=== PATIENT | female | born 1985 | race African-American/Black ===

== ENCOUNTER 2017-11-19 10:21 | Emergency (ER) | payer SELFPAY ==
[2017-11-19] MEDS ORDERED: ONDANSETRON 4 MG (ODT) TAB ONE (13:24)
--- NOTE | 2017-11-19 13:33 | ER ---
Nurse's Notes [facility] Name: Diaan Short Age: 32 yrs Sex: Female : 1985 Arrival Date: 11/19/2017 Time: 10:24 Bed 12 Private MD: None, None Diagnosis: Presentation: 11/19 10:33 Presenting complaint: Patient states: Reports N/V that started 1.5 hours ago. Vomited x aj 3 episodes. Patient states, "I had my nexplanon removed yesterday, I don't know if that has anything to do with it.". Transition of care: patient was not received from another setting of care. Onset of symptoms was November 19, 2017. Initial Sepsis Screen: Does the patient meet any 2 criteria? No. Patient's initial sepsis screen is negative. Does the patient have a suspected source of infection? No. Patient's initial sepsis screen is negative. Care prior to arrival: None. 10:33 Method Of Arrival: Ambulatory aj 10:33 Acuity: ESPERANZA 3 aj Triage Assessment: 10:34 General: Appears in no apparent distress. comfortable, Behavior is calm, cooperative, aj appropriate for age. Pain: Complains of pain in abdomen. Neuro: Level of Consciousness is awake, alert, obeys commands, Oriented to person, place, time, situation, Appropriate for age. Respiratory: Airway is patent Respiratory effort is even, unlabored, Respiratory pattern is regular, symmetrical. GI: Reports lower abdominal pain, upper abdominal pain, nausea, vomiting. Derm: Skin is intact, is healthy with good turgor, Skin is pink, warm \\T\\ dry. normal. 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 - Social history:: Smoking status: Patient uses tobacco products, smokes one-half pack cigarettes per day. Screenin:53 Abuse screen: Denies threats or abuse. Denies injuries from another. Nutritional iw screening: No deficits noted. Tuberculosis screening: No symptoms or risk factors identified. Fall Risk IV access (20 points). Assessment: 12:51 General: Appears in no apparent distress. Behavior is calm, cooperative. Pain: iw Complains of pain in suprapubic area and right lower quadrant. Neuro: Level of Consciousness is awake, alert, obeys commands. Cardiovascular: Patient's skin is warm and dry. Respiratory: Respiratory effort is even, unlabored, Respiratory pattern is regular. GI: Abdomen is non-distended, Reports nausea, vomiting. Derm: Skin is pink, warm \\T\\ dry. normal. Musculoskeletal: Range of motion: intact in all extremities. 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 Vital Signs: 10:34 BP 137 / 92; Pulse 98; Resp 19; Temp 98.7; Pulse Ox 99% on R/A; Weight 79.38 kg; Height aj 5 ft. 0 in. (152.40 cm); 10:34 Body Mass Index 34.18 (79.38 kg, 152.40 cm) aj ED Course: 10:24 Patient arrived in ED. mr 10:25 None, None is Private Physician. mr 10:34 Triage completed. aj 10:34 Arm band placed on left wrist. Patient placed in waiting room, Patient notified of wait aj time. 12:36 Chris Sheehan PA is PHCP. cp 12:36 Dimas Nuñez MD is Attending Physician. cp 12:51 Madison Eaton, RN is Primary Nurse. iw Administered Medications: 13:25 Drug: Zofran 4 mg Route: PO; iw 13:32 Follow up: Response: No adverse reaction iw Outcome: 13:32 Eloped from waiting room, after seeing physician Time discovered patient gone: November 19 2018 at 13:32 13:32 Patient left the ED. iw Signatures: Estela Butts, RN RN Leela Angulo mr Madison Eaton, RN RN Chris Chance PA PA cp
[2017-11-19 13:36] VITALS: BP 137/92; TEMP 98.7; O2SAT 99
--- NOTE | 2017-11-20 13:43 | EDPHYS ---
Physician Documentation [facility] Name: Diana Short Age: 32 yrs Sex: Female : 1985 Arrival Date: 11/19/2017 Time: 10:24 Bed 12 Private MD: None, None ED Physician Dimas Nuñez HPI: 11/19 12:45 This 32 yrs old Black Female presents to ER via Ambulatory with complaints of Vomiting. cp 12:45 The patient presents to the emergency department with nausea, vomiting, that is cp intermittent, 3 times today. Onset: The symptoms/episode began/occurred this morning. Possible causes: unknown. 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 - Social history:: Smoking status: Patient uses tobacco products, smokes one-half pack cigarettes per day. ROS: 12:55 Constitutional: Negative for body aches, chills, fever, poor PO intake. cp 12:55 Eyes: Negative for injury, pain, redness, and discharge. cp 12:55 ENT: Negative for drainage from ear(s), ear pain, sore throat, difficulty swallowing, difficulty handling secretions. 12:55 Respiratory: Negative for cough, shortness of breath, wheezing. 12:55 Abdomen/GI: Positive for abdominal pain, nausea and vomiting, Negative for diarrhea, constipation, black/tarry stool, rectal bleeding. 12:55 Back: Negative for pain at rest, pain with movement. 12:55 : Negative for urinary symptoms, vaginal bleeding, vaginal discharge. 12:55 Skin: Negative for cellulitis, rash. 12:55 Neuro: Negative for headache, weakness. 12:55 All other systems are negative. Exam: 13:02 Constitutional: The patient appears in no acute distress, alert, awake, non-toxic, well cp developed, well nourished. 13:02 Head/Face: Normocephalic, atraumatic. cp 13:02 Eyes: Periorbital structures: appear normal, Conjunctiva: normal, no exudate, no injection, Sclera: no appreciated abnormality, Lids and lashes: appear normal, bilaterally. 13:02 ENT: External ear(s): are unremarkable, Ear canal(s): are normal, clear, TM's: bulging, is not appreciated, bilaterally, dullness, bilaterally, erythema, is not appreciated, bilaterally, Nose: is normal, Mouth: Lips: moist, Oral mucosa: pink and intact, moist, Posterior pharynx: is normal, airway is patent, no erythema, no exudate. 13:02 Neck: ROM/movement: is normal, is supple, without pain, no range of motions limitations, no nuchal rigidity. 13:02 Chest/axilla: Inspection: normal, Palpation: is normal, no crepitus, no tenderness. 13:02 Cardiovascular: Rate: normal, Rhythm: regular. 13:02 Respiratory: the patient does not display signs of respiratory distress, Respirations: normal, no use of accessory muscles, no retractions, no splinting, no tachypnea, Breath sounds: are clear throughout, no decreased breath sounds, no stridor, no wheezing. 13:02 Abdomen/GI: Inspection: abdomen appears normal, Bowel sounds: active, all quadrants, Palpation: soft, in all quadrants, nontender, in all quadrants, rebound tenderness, is not appreciated, voluntary guarding, is not appreciated, involuntary guarding, is not appreciated. 13:02 Back: pain, is absent, ROM is normal. 13:02 Skin: cellulitis, is not appreciated, no rash present. Vital Signs: 10:34 BP 137 / 92; Pulse 98; Resp 19; Temp 98.7; Pulse Ox 99% on R/A; Weight 79.38 kg; Height aj 5 ft. 0 in. (152.40 cm); 10:34 Body Mass Index 34.18 (79.38 kg, 152.40 cm) aj MDM: 12:37 Patient medically screened. cp 13:30 Data reviewed: vital signs, nurses notes. cp 13:30 Differential diagnosis: gastritis, cholecystitis, appendicitis, viral gastroenteritis, cp gastroenteritis. Administered Medications: 13:25 Drug: Zofran 4 mg Route: PO; iw 13:32 Follow up: Response: No adverse reaction iw Disposition: 11/19/17 13:32 Patient left the facility after being seen by provider. - Patient left due to other. Addendum: 11/21/2017 06:39 Co-signature as Attending Physician, Dimas Nuñez MD I agree with the assessment and w a plan of care. Signatures: Estela Butts RN RN aj Williams, Irene, RN RN iw Page, Corey, PA PA cp Appiah, William, MD MD wa Corrections: (The following items were deleted from the chart) 11/19 13:32 13:32 11/19/2017 13:32 Patient left the facility after being seen by provider. Reason iw stated they are leaving due to other. iw
== END 2017-11-19 13:32 | disposition left against medical advice (07) ==
LOC: ER 10:21
DX: R11.2 Nausea with vomiting, unspecified (principal); J45.909 Unspecified asthma, uncomplicated
CPT/HCPCS: 99282

== ENCOUNTER 2024-04-21 06:03 | Emergency (ER) | payer OTHER ==
[2024-04-21] MEDS ORDERED: IPRATROPIUM BROM 0.5MG/2.5ML ONE (06:51)
[2024-04-21] MEDS ORDERED: ALBUTEROL 2.5 MG/3 ML NEB SOL ONE (06:51)
[2024-04-21 07:00] LABS: Absolute Eosinophils 0.2 K/uL (0-0.5); Absolute Lymphocytes (CBC) 2.3 K/uL (0.7-4.9); Absolute Monocytes 0.4 K/uL (0.1-1.3); Absolute Neutrophil 3.5 K/uL (1.8-8.0); Basophils % 0.3 % (0-1.3); Eosinophils % 2.5 % (0-4.4); Hematocrit 39.5 % (36.0-45.0); Lymphocytes % 36.5 % (15.3-44.8); MCHC 32.8 g/dL (32.0-36.0); MCV 88.2 fL (80-100); MPV 8.4 fL (7.6-11.3); Monocytes % 6.6 % (3.3-12.3); Neutrophils % 54.1 % (41.7-73.7); Platelets 349 thou/uL (152-406); RBC Red Blood Cell Count 4.48 M/uL (3.86-4.86); Red Cell Distribution Width 12.7 % (12.1-15.2)
[2024-04-21 07:15] LABS: ALT/SGPT 22 U/L (13-56); Albumin 3.5 g/dL (3.4-5.0); Alkaline Phosphatase 60 U/L (45-117); Anion Gap 6.7 mEq/L (5.0-15.0); BUN Blood Urea Nitrogen 17 mg/dL (7-18); Bicarbonate 28 mEq/L (21-32); Bilirubin Total 0.4 mg/dL (0.2-1.0); Globulin 3.6 g/dL (2.3-3.5); Glomerular Filtration Rate 96 ml/min (=/>90); Glucose Level 98 mg/dL (74-106); Potassium 3.7 mEq/L (3.5-5.1); Protein, Total 7.1 g/dL (6.4-8.2); Sodium Level 137 mEq/L (136-145)
[2024-04-21 07:19] LABS: SARS-CoV-2 Antigen CONTROL BLUE LINE VIS/BG OK; SARS-CoV-2 Antigen Rapid Res Negative (Negative)
[2024-04-21 07:19] LABS: AST/SGOT < 10 U/L (15-37); Bilirubin Direct < 0.2 mg/dL (0-0.2); Bilirubin Indirect, Calculated 0.2 mg/dL (0.2-0.8)
--- NOTE | 2024-04-21 08:03 | RAD REPORT ---
Procedure: Chest Single View History: Cough Comparison: 2012 The lungs appear clear of acute infiltrate. No significant pleural effusion noted. The heart is normal size. IMPRESSION: No acute abnormality is displayed.
--- NOTE | 2024-04-21 08:40 | ER ---
Nurse's Notes [facility] Name: Diana Short Age: 38 yrs Sex: Female : 1985 Arrival Date: 04/21/2024 Time: 06:03 Bed 5 Private MD: Diagnosis: Acute upper respiratory infection, unspecified;Unspecified asthma with (acute) exacerbation Presentation: 04/21 06:23 Chief complaint: Patient states: diagnosed with bronchitis 3 weeks ago. been taking lg3 Bromfed and finished ZPak and symptoms are worsening. im hoarse, my asthma is worse, my chest is tight and my mucous is thick and yellow now. Coronavirus screen: At this time, unable to obtain information related to travel outside the [place] Client presents with at least one sign or symptom that may indicate coronavirus-19. Standard/surgical mask placed on the client. Ebola Screen: No symptoms or risks identified at this time. Resp Distress? No respiratory distress is noted at this time. Risk Assessment: Do you want to hurt yourself or someone else? Patient reports no desire to harm self or others. Onset of symptoms is unknown. 06:23 Method Of Arrival: Ambulatory lg3 06:23 Acuity: ESPERANZA 3 lg3 06:28 Initial Sepsis Screen: Does the patient meet any 2 criteria? No. Patient's initial kj2 sepsis screen is negative. Does the patient have a suspected source of infection? No. Patient's initial sepsis screen is negative. Triage Assessment: 06:25 General: Appears in no apparent distress. uncomfortable, Behavior is calm, cooperative. lg3 Pain: Complains of pain in chest. EENT: Reports nasal congestion nasal discharge. Neuro: No deficits noted. [place]ua Agitation-Sedation Scale (RASS): 0 - Alert and Calm Level of Consciousness is awake, alert, obeys commands, Oriented to person, place, time, situation. Cardiovascular: No deficits noted. Heart tones S1 S2 present Capillary refill < 3 seconds Clubbing of nail beds is absent JVD is absent Patient's skin is warm and dry. Respiratory: Reports cough that is productive, persistent pain with cough Airway is patent Respiratory effort is even, unlabored, Respiratory pattern is regular, symmetrical. GI: No deficits noted. No signs and/or symptoms were reported involving the gastrointestinal system. : No deficits noted. No signs and/or symptoms were reported regarding the genitourinary system. Derm: No deficits noted. No signs and/or symptoms reported regarding the dermatologic system. Skin is intact, is healthy with good turgor, Skin is dry, Skin is normal, Skin temperature is warm. Musculoskeletal: No deficits noted. No signs and/or symptoms reported regarding the musculoskeletal system. Circulation, motion, and sensation intact. Range of motion: intact in all extremities. 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 - Infectious Disease History:: Denies. - Social history:: Smoking status: Reported history of juuling and/or vaping. Patient/guardian denies using alcohol, street drugs. Screenin:28 [facility] ED Fall Risk Assessment (Adult) History of falling in the last 3 months, kj2 including since admission No falls in past 3 months (0 pts) Confusion or Disorientation No (0 pts) Intoxicated or Sedated No (0 pts) Impaired Gait No (0 pts) Mobility Assist Device Used No (0 pt) Altered Elimination No (0 pt) Score/Fall Risk Level 0 - 2 = Low Risk Maintained a safe environment, Educated pt \T\ family on fall prevention, incl call for assistance when getting out of bed, Hourly rounding (assess needs \T\ fall precautionary measures) done. Abuse screen: Denies threats or abuse. Denies injuries from another. Nutritional screening: No deficits noted. Tuberculosis screening: No symptoms or risk factors identified. Assessment: 06:26 General: Appears in no apparent distress. Behavior is calm, cooperative. Pain: kj2 Complains of pain in throat Pain currently is 6 out of 10 on a pain scale. Neuro: Level of Consciousness is awake, alert, obeys commands, Oriented to person, place, time, situation. Cardiovascular: Patient's skin is warm and dry. Respiratory: Airway is patent Respiratory effort is even, unlabored. Respiratory: Breath sounds with rhonchi bilaterally. in chest. GI: No signs and/or symptoms were reported involving the gastrointestinal system. : No signs and/or symptoms were reported regarding the genitourinary system. 07:37 Reassessment: Patient appears in no apparent distress at this time. Patient and/or ph family updated on plan of care and expected duration. Pain level reassessed. Patient is alert, oriented x 3, equal unlabored respirations, skin warm/dry/pink. Vital Signs: 06:25 BP 124 / 90; Pulse 78; Resp 20; Temp 98.5; Pulse Ox 100% on R/A; kj2 06:27 BP 124 / 90; Pulse 80; Resp 17 S; Temp 98.8(O); Pulse Ox 99% on R/A; Weight 81.65 kg lg3 (R); Height 5 ft. 0 in. (R); 06:32 Weight 81.65 kg; Height 5 ft. 0 in. ; Pain 6/10; kj2 07:35 BP 111 / 88; Pulse 80; Resp 18; Pulse Ox 99% on R/A; ph 08:51 BP 117 / 79; Pulse 79; Resp 16; Pulse Ox 98% ; bp 06:32 Body Mass Index 35.15 (81.65 kg, 152.4 cm) kj2 06:32 Pain Scale: Adult kj2 ED Course: 06:06 Patient arrived in ED. gm2 06:15 Merlin Livingston MD is Attending Physician. sp3 06:24 Serina Benitez, ALISA is Primary Nurse. kj2 06:25 Triage completed. lg3 06:25 Arm band placed on right wrist. lg3 06:29 Patient has correct armband on for positive identification. Bed in low position. Call kj2 light in reach. Provided Education on: call light, fall precautions. 06:29 No provider procedures requiring assistance completed. kj2 06:56 Inserted saline lock: 22 gauge in left antecubital area, using aseptic technique. Blood oe collected. Flushed with 10 mL NS. 06:58 Strep Sent. oe 06:58 Flu Sent. oe 06:58 SARS RAPID Sent. oe 06:58 Basic Metabolic Panel Sent. oe 06:58 CBC with Diff Sent. oe 06:58 LFT's Sent. oe 07:02 Report given to Joni RN. bm8 07:41 XRAY Chest (1 view) In Process Unspecified. EDMS 08:35 Throat Culture Sent. bp 08:36 Attending Physician role handed off by Merlin Livingston MD rn 08:36 Vasyl Zapata MD is Attending Physician. rn 08:50 IV discontinued, intact, bleeding controlled, No redness/swelling at site. Pressure bp dressing applied. Administered Medications: 06:55 Drug: DuoNeb Nebulize (3:1) (2.5 mg - 0.5 mg) 3 ml Nebulizer once Route: Nebulizer; kj2 07:36 Follow up: Response: No adverse reaction ph 08:45 Drug: MethylPrednisoLONE IVP 125 mg IVP once Route: IVP; Site: left antecubital; bp 08:50 Follow up: Response: No adverse reaction bp Medication: 06:28 VIS not applicable for this client. kj2 Outcome: 08:39 Discharge ordered by MD. rn 08:50 Discharged to home ambulatory, bp 08:50 Condition: stable 08:50 Discharge instructions given to patient, Instructed on discharge instructions, follow up and referral plans. medication usage, Demonstrated understanding of instructions, follow-up care, medications, Prescriptions given X 2, 08:52 Patient left the ED. bp Signatures: Dispatcher [employer] EDMS Vasyl Zapata MD MD rn Hall, Patricia, RN RN Preston, Allan Mccormick, RN RN bp Carol Best, RN RN lg3 Merlin Livingston MD MD sp3 Samantha Cox 2 Magdiel Escalante, RN RN bm8 Serina Benitez, RN RN kj2
--- NOTE | 2024-04-21 08:40 | EDPHYS ---
Physician Documentation [facility] Name: Diana Short Age: 38 yrs Sex: Female : 1985 Arrival Date: 04/21/2024 Time: 06:03 Bed 5 Private MD: ED Physician Vasyl Zapata HPI: 04/21 06:36 This 38 yrs old Black Female presents to ER via Ambulatory with complaints of Cough, sp3 Congestion, Sore Throat. 06:36 38-year-old female with a history of asthma presents to the ED with shortness of breath sp3 and cough stating that she has had to start using her inhaler again starting yesterday. Patient just finished Zithromax and Bromfed from her PCP for similar presentation last week. Swabs at that time were negative. Patient denies any fever, headache, neck pain, chest pain, back pain, abdominal pain, vomiting, diarrhea, rash, known sick contacts, travel history, prolonged immobilization, prior DVT or PE, or any other signs or symptoms on ROS at this time.. 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 - Infectious Disease History:: Denies. - Social history:: Smoking status: Reported history of juuling and/or vaping. Patient/guardian denies using alcohol, street drugs. ROS: 06:37 Constitutional: Negative for fever, chills, and weight loss, Eyes: Negative for injury, sp3 pain, redness, and discharge, Neck: Negative for injury, pain, and swelling, Cardiovascular: Negative for chest pain, palpitations, and edema, Abdomen/GI: Negative for abdominal pain, nausea, vomiting, diarrhea, and constipation, Back: Negative for injury and pain, MS/Extremity: Negative for injury and deformity, Skin: Negative for injury, rash, and discoloration, Neuro: Negative for headache, weakness, numbness, tingling, and seizure, 06:37 All other systems are negative, Exam: 06:37 Constitutional: This is a well developed, well nourished patient who is awake, alert, sp3 and in no acute distress. Head/Face: Normocephalic, atraumatic. Eyes: Pupils equal round and reactive to light, extra-ocular motions intact. Lids and lashes normal. Conjunctiva and sclera are non-icteric and not injected. Cornea within normal limits. Periorbital areas with no swelling, redness, or edema. Neck: Trachea midline, no thyromegaly or masses palpated, and no cervical lymphadenopathy. Supple, full range of motion without nuchal rigidity, or vertebral point tenderness. No Meningismus. Chest/axilla: Normal chest wall appearance and motion. Nontender with no deformity. No lesions are appreciated. Cardiovascular: Regular rate and rhythm with a normal S1 and S2. No gallops, murmurs, or rubs. Normal PMI, no JVD. No pulse deficits. Abdomen/GI: Soft, non-tender, with normal bowel sounds. No distension or tympany. No guarding or rebound. No evidence of tenderness throughout. Back: No spinal tenderness. No costovertebral tenderness. Full range of motion. Skin: Warm, dry with normal turgor. Normal color with no rashes, no lesions, and no evidence of cellulitis. MS/ Extremity: Pulses equal, no cyanosis. Neurovascular intact. Full, normal range of motion. Neuro: Awake and alert, GCS 15, oriented to person, place, time, and situation. Cranial nerves II-XII grossly intact. Motor strength 5/5 in all extremities. Sensory grossly intact. Cerebellar exam normal. Normal gait. Psych: Awake, alert, with orientation to person, place and time. Behavior, mood, and affect are within normal limits. 06:37 Respiratory: Sinus congestion noted. Patient has raspy voice and active dry cough. Scattered wheezes also noted., Vital Signs: 06:25 BP 124 / 90; Pulse 78; Resp 20; Temp 98.5; Pulse Ox 100% on R/A; kj2 06:27 BP 124 / 90; Pulse 80; Resp 17 S; Temp 98.8(O); Pulse Ox 99% on R/A; Weight 81.65 kg lg3 (R); Height 5 ft. 0 in. (R); 06:32 Weight 81.65 kg; Height 5 ft. 0 in. ; Pain 6/10; kj2 07:35 BP 111 / 88; Pulse 80; Resp 18; Pulse Ox 99% on R/A; ph 08:51 BP 117 / 79; Pulse 79; Resp 16; Pulse Ox 98% ; bp 06:32 Body Mass Index 35.15 (81.65 kg, 152.4 cm) kj2 06:32 Pain Scale: Adult kj2 MDM: 06:15 Patient medically screened. sp3 06:38 Data reviewed: vital signs, nurses notes, lab test result(s), radiologic studies. ED sp3 course: 38-year-old female with cough, congestion and shortness of breath. Differential diagnosis includes asthma exacerbation, bronchitis, pneumonia, other viral process, COVID-19, influenza, strep pharyngitis, among others. Workup will include chest x-ray swabs and general laboratory values given failed outpatient treatment. Consider adding prednisone or IV steroid if x-ray demonstrates no significant infiltrate. DuoNeb also ordered. Final disposition pending workup and patient course as well as reevaluation. Patient will be signed out to daytime physician for final reevaluation and disposition.. 08:36 Differential Diagnosis: Bronchitis Influenza. rn 08:37 Differential Diagnosis: Upper Respiratory Infection Sinusitis Allergic Rhinitis Viral rn Syndrome Pneumonia. Counseling: I had a detailed discussion with the patient and/or guardian regarding the historical points, exam findings, and any diagnostic results supporting the discharge/admit diagnosis, lab results, radiology results, the need for outpatient follow up, to return to the emergency department if symptoms worsen or persist or if there are any questions or concerns that arise at home. Special discussion: I discussed with the patient/guardian in detail that at this point there is no indication for admission to the hospital. It is understood, however, that if the symptoms persist or worsen the patient needs to return immediately for re-evaluation. ED course: Patient improved after nebulizer. Stable vital signs. No oxygen requirement. Will discharge home with steroids and antibiotics.. 04/21 06:35 Order name: Basic Metabolic Panel; Complete Time: 08:31 sp3 04/21 06:35 Order name: CBC with Diff; Complete Time: 08:31 sp3 04/21 06:35 Order name: LFT's; Complete Time: 08:31 sp3 04/21 06:35 Order name: SARS RAPID; Complete Time: 08: sp3 04/21 06:35 Order name: Flu; Complete Time: 08:31 sp3 04/21 06:35 Order name: Strep sp3 04/21 07:21 Order name: Throat Culture [facility] 04/21 06:35 Order name: XRAY Chest (1 view); Complete Time: 08:31 sp3 04/21 06:35 Order name: Cardiac monitoring; Complete Time: 06:56 sp3 04/21 06:35 Order name: IV Saline Lock; Complete Time: 06:56 sp3 04/21 06:35 Order name: Labs collected and sent; Complete Time: 06:56 sp3 04/21 06:35 Order name: O2 Sat Monitoring; Complete Time: 06:56 sp3 Administered Medications: 06:55 Drug: DuoNeb Nebulize (3:1) (2.5 mg - 0.5 mg) 3 ml Nebulizer once Route: Nebulizer; kj2 07:36 Follow up: Response: No adverse reaction ph 08:45 Drug: MethylPrednisoLONE IVP 125 mg IVP once Route: IVP; Site: left antecubital; bp 08:50 Follow up: Response: No adverse reaction bp Disposition Summary: 04/21/24 08:39 Discharge Ordered Notes: Location: Home rn Problem: new rn Symptoms: have improved rn Condition: Stable rn Diagnosis - Acute upper respiratory infection, unspecified rn - Unspecified asthma with (acute) exacerbation rn Followup: rn - With: Private Physician - When: As needed - Reason: Recheck today's complaints, Re-evaluation by your physician Discharge Instructions: - Discharge Summary Sheet rn - Asthma, Adult rn - Upper Respiratory Infection, Adult rn Forms: - Work release form bd - Medication Reconciliation Form rn - Antibiotic infusion rn - Prescription Opioid Use rn - Patient Portal Instructions rn - Leadership Thank You Letter rn Prescriptions: - Prednisone 20 mg Oral Tablet - take 3 tablets ORAL route once daily for 5 days; 15 tablet; Refills: 0, Product rn Selection Permitted - levofloxacin 500 mg Oral tablet - take 1 tablet ORAL route once daily for 7 days; 7 tablet; Refills: 0, Product rn Selection Permitted Signatures: Dispatcher [employer] EDPA Vasyl Zapata MD MD rn Peltier, Brian, RN RN Carol Méndez RN RN lg3 Merlin Livingston MD MD sp3 Serina Benitez RN RN kj2 No Keen RN ph Corrections: (The following items were deleted from the chart) 06:36 06:36 BASIC METABOLIC PANEL+C.LAB.BRZ ordered. EDMS EDMS 06:36 06:36 CBC+H.LAB.BRZ ordered. EDMS EDMS 06:36 06:36 HEPATIC FUNCTION+C.LAB.BRZ ordered. EDMS EDMS 06:36 06:36 SARS-COV-2 Antigen Rapid+I.LAB.BRZ ordered. EDMS EDMS 06:36 06:36 Influenza Screen (A \T\ B)+BA.LAB.BRZ ordered. EDMS EDMS 06:36 06:36 Group A Streptococcus Rapid Sc+BA.LAB.BRZ ordered. EDMS EDMS
[2024-04-21] MEDS ORDERED: METHYLPREDNISOLONE 125 MG INJ ONE (08:44)
[2024-04-21 21:10] VITALS: TEMP 98.8
[2024-04-21 21:15] VITALS: BP 117/79; O2SAT 98
== END 2024-04-21 08:52 | disposition home or self-care (01) ==
LOC: ER 06:03
DX: J06.9 Acute upper respiratory infection, unspecified (principal); J44.1 Chronic obstructive pulmonary disease with (acute) exacerbation; F17.290 Nicotine dependence, other tobacco product, uncomplicated; Z11.52 Encounter for screening for COVID-19
CPT/HCPCS: 87070; 85025; 80048; 36415; 80076; 87081; 87804 ×2; 71045; 96374; 99285; 87811; J7613; J7644; J2919